=== PATIENT | male | born 1975 | race Two or more races ===

== ENCOUNTER 2022-08-03 04:08 | Inpatient (IN) | payer OTHER ==
[2022-08-03] VITALS (10 sets, daily range): BP systolic 119–134; BP diastolic 63–78
[~2022-08-03] VITALS: Ht 170.2 cm; Wt 86.0 kg
[2022-08-03 04:58] LABS: Basophils # (auto) 0.1 10 ^3/uL (0-0.2); Basophils % (auto) 0.7 % (0.0-2.0); Eosinophils # (auto) 0.1 10 ^3/uL (0-0.8); Eosinophils % (auto) 0.8 % (0.0-7.0); Hematocrit 44.3 % (41.0-53.0); Hemoglobin 14.1 g/dL (13.5-17.5); Lymphocytes # (auto) 1.5 10 ^3/uL (0.4-5.4); Lymphocytes % (auto) 15.5 % (10.0-50.0); Mean Corpuscular Hemoglobin 28.5 pg (28.0-32.0); Mean Corpuscular Hgb Conc. 31.9 g/dL (32.0-36.0); Mean Corpuscular Volume 89.3 fL (80.0-100.0); Monocytes # (auto) 0.6 10 ^3/uL (0-1.3); Monocytes % (auto) 6.5 % (0.0-12.0); Neutrophils # (auto) 7.4 10 ^3/uL (1.6-8.6); Neutrophils % (auto) 76.5 % (37.0-80.0); Nucleated Red Blood Cells % 0.1 %; Red Blood Cells 4.96 10^6/uL (4.5-5.90); Red Cell Distribution Width 14.7 % (11.8-14.3); White Blood Cell 9.7 10^3/uL (4.4-10.8)
[2022-08-03 05:17] LABS: Albumin 3.9 g/dL (3.4-5.0); Anion Gap 5 (5-15); Blood Alcohol < 3.0 mg/dL (0-5); Blood Urea Nitrogen 16 mg/dL (7-18); Calcium 8.7 mg/dL (8.5-10.1); Carbon Dioxide 26 mmol/L (21-32); Chloride 107 mmol/L (98-107); Glucose 100 mg/dL (74-106); Potassium 4.5 mmol/L (3.5-5.1); Sodium 138 mmol/L (136-145)
[2022-08-03 05:20] LABS: Alanine Aminotransferase 22 U/L (16-61); Alkaline Phosphatase 72 U/L (45-117); Aspartate Aminotransferase 14 U/L (15-37); Bilirubin, Total 0.4 mg/dL (0.2-1.0); GFR African American 103 mL/min; GFR Non-African American 85 mL/min; Total Protein 7.8 g/dL (6.4-8.2)
[2022-08-03] MEDS ORDERED: ATROPINE SULFATE 1 MG/1 ML VIAL ONE (05:59)
[2022-08-03] MEDS ORDERED: ATROPINE SULF 0.5 MG/5ML SYR ONE (05:59)
[2022-08-03] MEDS ORDERED: SODIUM CHLORIDE 0.9% 2,000 ML IV ONE (06:00)
[2022-08-03] MEDS ORDERED: ATROPINE SULF 1 MG/10ml SYR IV ONE (06:00)
[2022-08-03 10:17] LABS: Cholesterol 105 mg/dL (< 200); HDL Cholesterol 37 mg/dL (40-59); LDL Cholesterol 65 mg/dL (< 100); Triglycerides 84 mg/dL (< 150)
[2022-08-03 10:45] LABS: Alcohol, Urine < 3.0 mg/dL (0-10); Amphetamine Screen, Urine NEGATIVE (NEGATIVE); Barbiturate Scree,Urine NEGATIVE (NEGATIVE); Benzodiazephine Screen, Urine NEGATIVE (NEGATIVE); Cannabinoid Screen, Urine NEGATIVE (NEGATIVE); Cocaine Screen, Urine NEGATIVE (NEGATIVE); Phencyclidine Screen, Urine NEGATIVE (NEGATIVE)
[2022-08-03 10:51] LABS: Opiate Scree,Urine NEGATIVE (NEGATIVE)
[2022-08-03 11:09] LABS: INR 1.09 (0.9-1.15); Partial Thromboplastin Time 24.7 sec (24.6-33.4)
[2022-08-03] MEDS ORDERED: NITROGLYCERIN 0.4 MG SL TAB SL PRN (11:45)
[2022-08-03] MEDS ORDERED: HYDROcodone-ACET 10/325MG TAB PO PRN (11:45)
[2022-08-03] MEDS ORDERED: MORPHINE SULFATE INJ 2 MG/ml SYRG IV PRN (11:45)
[2022-08-03] MEDS: D5W/SOD CHL 0.45% 1,000 ML IV SCH ×2 (12:54→20:50)
[2022-08-03] MEDS ORDERED: VANCOMYCIN HCL 1000 MG VL ONE (14:39)
[2022-08-03] MEDS ORDERED: fentaNYL CITRATE 100 MCG/2 ML VL ONE (14:39)
[2022-08-03] MEDS ORDERED: MIDAZOLAM HCL 2MG/2ML 2ml VIAL (1mg/ml) ONE (14:39)
[2022-08-03] MEDS ORDERED: VANCOMYCIN 1GM/250ML 250 ML IV ONE (14:40)
[2022-08-03] MEDS ORDERED: LIDOCAINE 2%HCL (LOCAL ANESTH.) INJ 20ML MDV ONE (14:47)
[2022-08-03] MEDS ORDERED: IOHEXOL 350 MG/ML 100ML IJ ONE (15:10)
[2022-08-04 05:00] VITALS: BP 116/61
[2022-08-04 05:05] LABS: Basophils # (auto) 0 10 ^3/uL (0-0.2); Basophils % (auto) 0.5 % (0.0-2.0); Eosinophils # (auto) 0 10 ^3/uL (0-0.8); Eosinophils % (auto) 0.7 % (0.0-7.0); Hematocrit 36.5 % (41.0-53.0); Hemoglobin 12.1 g/dL (13.5-17.5); Lymphocytes # (auto) 1.7 10 ^3/uL (0.4-5.4); Lymphocytes % (auto) 25.8 % (10.0-50.0); Mean Corpuscular Hemoglobin 28.8 pg (28.0-32.0); Mean Corpuscular Volume 87.3 fL (80.0-100.0); Monocytes # (auto) 0.7 10 ^3/uL (0-1.3); Monocytes % (auto) 11.4 % (0.0-12.0); Neutrophils % (auto) 61.6 % (37.0-80.0); Nucleated Red Blood Cells % 0.1 %; Red Blood Cells 4.18 10^6/uL (4.5-5.90); Red Cell Distribution Width 14.7 % (11.8-14.3); White Blood Cell 6.6 10^3/uL (4.4-10.8)
[2022-08-04 05:22] LABS: Albumin 3.1 g/dL (3.4-5.0); Calcium 7.9 mg/dL (8.5-10.1); Potassium 3.7 mmol/L (3.5-5.1)
[2022-08-04 05:27] LABS: BUN/Creatinine Ratio 14.3; Bilirubin, Total 0.4 mg/dL (0.2-1.0)
[2022-08-04 08:00] VITALS: BP 122/67
[2022-08-04 08:58] VITALS: BP 122/67
[2022-08-04] MEDS: D5W/SOD CHL 0.45% 1,000 ML IV SCH (09:00)
[2022-08-04] MEDS ORDERED: ENOXAPARIN SOD 40 MG/0.4 ML SYRINGE SC SCH (10:00)
[2022-08-04] MEDS ORDERED: LISINOPRIL 10 MG TAB PO SCH (10:00)
[2022-08-04 12:09] VITALS: BP 114/71
[2022-08-04 13:30] VITALS: BP 122/67
== END 2022-08-04 15:11 | DRG 244 ==
LOC: EEVIPCON 04:08 → ER 04:08 → EDBD 04:08 → TELE 11:51 → SUATTDRO 11:59 → TELE-EAST 17:57
PROVIDERS: ADMIT Internal Medicine; ATTEND Internal Medicine
PROC: 0JH606Z Insertion of Pacemaker, Dual Chamber into Chest Subcutaneous Tissue and Fascia, Open Approach (ICD-10-PCS; principal; 2022-08-03)
PROC: 02H63JZ Insertion of Pacemaker Lead into Right Atrium, Percutaneous Approach (ICD-10-PCS; 2022-08-03)
PROC: 02HK3JZ Insertion of Pacemaker Lead into Right Ventricle, Percutaneous Approach (ICD-10-PCS; 2022-08-03)
PROC: B517YZZ Fluoroscopy of Left Subclavian Vein using Other Contrast (ICD-10-PCS; 2022-08-03)
DX: I44.2 Atrioventricular block, complete (principal); I10 Essential (primary) hypertension; E78.5 Hyperlipidemia, unspecified; H40.9 Unspecified glaucoma; S02.2XXA Fracture of nasal bones, initial encounter for closed fracture; R00.1 Bradycardia, unspecified; R55 Syncope and collapse; Z20.822 Contact with and (suspected) exposure to COVID-19; R73.03 Prediabetes; X58.XXXA Exposure to other specified factors, initial encounter; Y93.89 Activity, other specified; Z63.4 Disappearance and death of family member; Y92.89 Other specified places as the place of occurrence of the external cause; Y99.8 Other external cause status
CPT/HCPCS: 33208; 36415; 70450; 70486; 71045; 75820; 80053; 80061; 80307; 80320; 83036; 83880; 84443; 84484; 85025; 85610; 85730; 87081; 87426; 93005; 93306; 96361; 96374; 99152; 99153; 99291; C1785; G0378; J0461; J2250